=== PATIENT | female | born 1960 | race Caucasian/White ===

== ENCOUNTER 2024-05-16 12:11 | Observation (INO) | payer BC ==
[~2024-05-16] VITALS: Ht 152.4 cm; Wt 86.2 kg
[2024-05-16] MEDS ORDERED: Vancomycin IV 1.5 GM in SODIUM CHLORIDE 0.9% 500ML 500 ML IV ONE (12:45)
[2024-05-16] MEDS ORDERED: IOPAMIDOL 370 MG/ML 100 ML INFUS..BTL INJ ONE (12:56)
[2024-05-16] MEDS: SODIUM CHLORIDE 0.9% 1000ML 1,000 ML IV SCH (13:03)
[2024-05-16] MEDS: Vancomycin IV 1 GM in SODIUM CHLORIDE 0.9% 250ML 250 ML IV SCH (13:04)
[2024-05-16] MEDS: BENZOCAINE 20% SPR 60 ML CAN MT ONE (13:04)
[2024-05-16] MEDS: TRAMADOL HCL 50 MG TAB PO ONE (14:33)
[2024-05-16] MEDS ORDERED: SODIUM CHLORIDE FLUSH 10 ML SYR INJ PRN (16:00)
[2024-05-16] MEDS: Clindamycin INJ 300 MG/50 ML 50 ML IV SCH (18:45)
[2024-05-16 18:47] VITALS: TEMP 98.6
[2024-05-16] MEDS ORDERED: BISACODYL 10 MG SUPP PR PRN (22:00)
[2024-05-16] MEDS ORDERED: ACETAMINOPHEN 325 MG TAB PO PRN (22:00)
[2024-05-16 23:15] VITALS: PULSE 91; RESP 16
[2024-05-16 23:47] VITALS: BP 117/69; PULSE 87; RESP 16; TEMP 98.1; O2SAT 95
[2024-05-17] VITALS (11 sets, daily range): BP systolic 91–139; BP diastolic 61–85; PULSE 84–95; RESP 11–30; TEMP 97.8–99.1; O2SAT 92–99
[2024-05-17] MEDS: TRAMADOL HCL 50 MG TAB PO PRN (02:14)
[2024-05-17 07:24] LABS: BASOPHILS # (AUTO) 0.1 (0.0-0.1); BASOPHILS % 0.6 % (0.0-1.0); EOSINOPHILS # (AUTO) 0.4 (0.0-0.4); EOSINOPHILS % 3.1 % (0.0-6.0); HEMATOCRIT 35.9 % (34.2-44.1); HEMOGLOBIN 11.5 g/dL (12.0-16.0); LYMPHOCYTES # (AUTO) 1.9 (1.0-3.2); LYMPHOCYTES % 17.2 % (18.0-39.1); MEAN CORPUSCULAR HEMOGLOBIN 31.6 pg (28-32); MEAN CORPUSCULAR VOLUME 98.6 fL (81-99); MONOCYTES % 8.5 % (4.4-11.3); NEUTROPHILS # (AUTO) 7.9 (2.1-6.9); NEUTROPHILS % 70.3 % (38.7-80.0); PLATELET COUNT 254 x10e3/uL (140-360); RED BLOOD COUNT 3.64 x10e6/uL (3.6-5.1); RED CELL DISTRIBUTION WIDTH 12.5 % (11.7-14.4); WHITE BLOOD COUNT 11.23 x10e3/uL (4.8-10.8)
[2024-05-17 07:51] LABS: ANION GAP 12.8 mmol/L (8-16); CALCIUM 8.8 mg/dL (8.4-10.2); CREATININE, SERUM 0.83 mg/dL (0.57-1.11); POTASSIUM 3.8 mmol/L (3.5-5.1)
[2024-05-17] MEDS: DOCUSATE SODIUM 100 MG CAP PO SCH (09:00)
[2024-05-17] MEDS: SENNOSIDES 8.6 MG TAB PO SCH (09:00)
[2024-05-17] MEDS: Clindamycin INJ 300 MG/50 ML 50 ML IV SCH (14:07)
[2024-05-17] MEDS ORDERED: IBUPROFEN800 MG PO (15:35)
[2024-05-17] MEDS ORDERED: CLINDAMYCIN HC300 MG PO (15:35)
== END 2024-05-17 15:54 | disposition home or self-care (01) ==
LOC: FSED 12:16 → ERHOLD 15:56 → ICU 23:26
PROVIDERS: ADMIT Internal Medicine; ATTEND Internal Medicine
DX: K04.7 Periapical abscess without sinus (principal); L03.211 Cellulitis of face; K02.9 Dental caries, unspecified; B95.4 Other streptococcus as the cause of diseases classified elsewhere; I10 Essential (primary) hypertension; E78.2 Mixed hyperlipidemia; E11.9 Type 2 diabetes mellitus without complications; I48.20 Chronic atrial fibrillation, unspecified; Z95.0 Presence of cardiac pacemaker; F41.1 Generalized anxiety disorder
CPT/HCPCS: 36415; 41800; 70487; 80048; 80053; 83036; 83605; 85025 ×2; 87040; 87070; 87205; 99252; 99284; G0378 ×2; J3370 ×2; J7030 ×2; J7040; J7050 ×2; Q9967

== ENCOUNTER 2025-04-29 12:18 | Inpatient (IN) | payer BC ==
[~2025-04-29] VITALS: Ht 160 cm; Wt 86.2 kg
[~2025-04-29 12:18] MED LIST: CLINDAMYCIN HC300 MG PO; IBUPROFEN800 MG PO
[2025-04-29] MEDS ORDERED: ONDANSETRON HCL INJ 2MG/ML 2ML 2 MG/ML VIAL IV STA (12:30)
[2025-04-29] MEDS ORDERED: Morphine 2mg Syringe 2 MG/ML SYR IV ONE (12:30)
[2025-04-29] MEDS ORDERED: PROMETHAZINE 12.5MG/ NACL 0.9% 50 ML ONE (13:26)
[2025-04-29] MEDS: PROMETHAZINE 12.5MG/ NACL 0.9% 12.5 MG/50 ML BAG IV ONE (13:33)
[2025-04-29] MEDS: SODIUM CHLORIDE 0.9% 1000ML 1,000 ML IV ONE ×2 (13:33→15:54)
[2025-04-29 13:40] LABS: BASOPHILS % 0.3 % (0.0-1.0); EOSINOPHILS % 0.0 % (0.0-6.0); LYMPHOCYTES % 5.7 % (18.0-39.1); MONOCYTES % 2.1 % (4.4-11.3); NEUTROPHILS % 91.5 % (38.7-80.0); RED CELL DISTRIBUTION WIDTH 12.3 % (11.7-14.4)
[2025-04-29 14:42] LABS: LYMPHOCYTES % (MANUAL) 12 % (19-48); MONOCYTES % (MANUAL) 1 % (3.4-9.0); NEUTROPHILS % (MANUAL) 87 % (40-74); PLATELET ESTIMATE ADEQUATE; PLATELET MORPHOLOGY COMMENT NORMAL
[2025-04-29 15:48] LABS: EST GLOMERULAR FILTRATION RATE 38.0 ML/MIN (>=60)
[2025-04-29] MEDS: METRONIDAZOLE 500MG/NS 100ML 100 ML IV ONE (15:54)
[2025-04-29] MEDS: CIPROFLOXACIN 400 MG/D5W 200ML 200 ML IV SCH (15:54)
[2025-04-29 16:01] LABS: B-TYPE NATRIURETIC PEPTIDE2 242.8 pg/mL (0-100)
[2025-04-29 16:12] LABS: EPITHELIAL CELLS,URINE FEW /LPF; LEUKOCYTE ESTERASE ,URINE NEGATIVE (NEGATIVE); PROTEIN,URINE DIPSTICK TRACE (NEGATIVE); URINE UROBILINOGEN 0.2 mg/dL (0.2 - 1); WBC,URINE (MAN) 0-5 /HPF (0-5)
[2025-04-29] MEDS: METOCLOPRAMIDE HCL 10 MG/2ML VIAL IV ONE (16:19)
[2025-04-29] MEDS: MAGNESIUM SULFATE 2GM/50ML 50 ML IV ONE (16:26)
[2025-04-29] MEDS: POTASSIUM CHLORIDE 20MEQ/100ML 100 ML IV SCH (16:28)
[2025-04-29] MEDS ORDERED: IOPAMIDOL 370 MG/ML 100 ML INFUS..BTL INJ ONE (16:55)
[2025-04-29 17:30] VITALS: TEMP 98.7
[2025-04-29] MEDS ORDERED: SODIUM CHLORIDE 0.9% 1000ML 1,000 ML IV SCH (19:00)
[2025-04-29] MEDS ORDERED: DIAZEPAM10 MG PO (21:31)
[2025-04-29] MEDS ORDERED: DEXTROSE 50% SYRINGE 50 ML IV PRN (21:45)
[2025-04-29 23:28] VITALS: PULSE 84; RESP 16
[2025-04-30] VITALS (29 sets, daily range): BP systolic 100–190; BP diastolic 59–124; PULSE 74–121; RESP 13–37; TEMP 97.9–98.7; O2SAT 96–100
[2025-04-30] MEDS: DIAZEPAM 5 MG TAB PO PRN (00:26)
[2025-04-30] MEDS: MELATONIN 5 MG TABLET PO PRN (02:41)
[2025-04-30 05:06] LABS: BASOPHILS % 0.2 % (0.0-1.0); EOSINOPHILS % 0.1 % (0.0-6.0); LYMPHOCYTES % 18.6 % (18.0-39.1); MONOCYTES % 11.3 % (4.4-11.3); NEUTROPHILS % 69.4 % (38.7-80.0); RED CELL DISTRIBUTION WIDTH 12.6 % (11.7-14.4)
[2025-04-30] MEDS: METOCLOPRAMIDE HCL 10 MG/2ML VIAL IV SCH (05:32)
[2025-04-30 05:35] LABS: EST GLOMERULAR FILTRATION RATE 51.0 ML/MIN (>=60)
[2025-04-30] MEDS: PROMETHAZINE 12.5MG/ NACL 0.9% 12.5 MG/50 ML BAG IV ONE (06:17)
[2025-04-30] MEDS ORDERED: TIZANIDINE HCL4 MG PO (07:02)
[2025-04-30] MEDS ORDERED: WEGOVY2.4 MG/0.7 (07:02)
[2025-04-30] MEDS ORDERED: RIZATRIPTAN10 MG PO (07:02)
[2025-04-30] MEDS ORDERED: GABAPENTIN800 MG PO (07:02)
[2025-04-30] MEDS ORDERED: ESZOPICLONE3 MG PO (07:02)
[2025-04-30] MEDS ORDERED: ELIQUIS5 MG PO (07:02)
[2025-04-30] MEDS ORDERED: MELOXICAM15 MG PO (07:02)
[2025-04-30] MEDS ORDERED: ZIPRASIDONE HCL80 MG PO (07:02)
[2025-04-30] MEDS ORDERED: ENTRESTO 49 MG1 EACH PO (07:02)
[2025-04-30] MEDS ORDERED: DULOXETINE HCL60 MG PO (07:02)
[2025-04-30] MEDS: INSULIN LISPRO 100 UNIT/1 ML 3ML VIAL SQ SCH (07:30)
[2025-04-30] MEDS: ZIPRASIDONE 20 MG CAP PO SCH (09:00)
[2025-04-30] MEDS: DULOXETINE HCL 30 MG DELAYED RELEASE PO SCH (09:00)
[2025-04-30] MEDS: ONDANSETRON HCL INJ 2MG/ML 2ML 2 MG/ML VIAL IV PRN (09:26)
[2025-04-30] MEDS: ENOXAPARIN INJ 80 MG/0.8 ML SYR SC SCH (09:26)
[2025-04-30] MEDS: POTASSIUM CHLORIDE 20MEQ/100ML 100 ML IV SCH (09:31)
[2025-04-30] MEDS: DEXTROSE 5%/0.45% SOD CHL 1,000 ML IV SCH (10:33)
[2025-04-30] MEDS: SODIUM CHLORIDE 0.9% 500ML 500 ML ONE (10:42)
[2025-04-30] MEDS ORDERED: METOCLOPRAMIDE HCL 10 MG/2ML VIAL IV SCH (14:00)
[2025-04-30 14:53] LABS: EST GLOMERULAR FILTRATION RATE 55.0 ML/MIN (>=60)
[2025-04-30 16:26] LABS: AMPHETAMINES SCREEN,URINE POSITIVE (NEGATIVE); COCAINE SCREEN,URINE NEGATIVE (NEGATIVE); OPIATES SCREEN,URINE NEGATIVE (NEGATIVE)
[2025-04-30 16:27] LABS: CANNABINOIDS SCREEN,URINE POSITIVE (NEGATIVE); METHADONE SCREEN, URINE NEGATIVE (NEGATIVE)
[2025-05-01] VITALS (39 sets, daily range): BP systolic 96–185; BP diastolic 13–143; PULSE 80–145; RESP 10–33; TEMP 98.2–98.4; O2SAT 94–100
[2025-05-01] MEDS ORDERED: DIAZEPAM INJ 5 MG/ML 2 ML IV ONE (00:30)
[2025-05-01] MEDS: MAGNESIUM SULFATE 2GM/50ML 50 ML IV ONE (00:42)
[2025-05-01] MEDS: HYDRALAZINE HCL 20 MG/ML VIAL IV PRN (01:17)
[2025-05-01] MEDS ORDERED: DIGOXIN INJ 0.25 MG/ML 2 ML AMP ONE (02:04)
[2025-05-01] MEDS ORDERED: METOPROLOL TARTRATE INJ 1 MG/ML VIAL ONE (02:04)
[2025-05-01] MEDS ORDERED: DILTIAZEM HCL VIAL 5 ML ONE (02:05)
[2025-05-01] MEDS ORDERED: FENTANYL CITRATE/PF 100MCG/2 ML INJ ONE (02:07)
[2025-05-01 06:36] LABS: BASOPHILS % 0.4 % (0.0-1.0); EOSINOPHILS % 0.1 % (0.0-6.0); LYMPHOCYTES % 23.8 % (18.0-39.1); MONOCYTES % 10.9 % (4.4-11.3); NEUTROPHILS % 64.1 % (38.7-80.0); RED CELL DISTRIBUTION WIDTH 12.4 % (11.7-14.4)
[2025-05-01 07:02] LABS: EST GLOMERULAR FILTRATION RATE 53.0 ML/MIN (>=60)
[2025-05-01] MEDS: POTASSIUM CHLORIDE 20 MEQ TAB CR PO ONE (07:54)
[2025-05-01] MEDS: METOPROLOL TARTRATE 25 MG TAB PO SCH (07:55)
[2025-05-01] MEDS: DIAZEPAM INJ 5 MG/ML 2 ML IV ONE ×2 (08:01→11:11)
[2025-05-01 08:56] LABS: CORONAVIRUS COVID-19 AG NEGATIVE (NEGATIVE); INFLUENZA A NAA NEGATIVE (NEGATIVE); INFLUENZA B NAA NEGATIVE (NEGATIVE)
[2025-05-01] MEDS ORDERED: ZIPRASIDONE 20 MG CAP PO SCH (09:00)
[2025-05-01] MEDS ORDERED: DULOXETINE HCL 30 MG DELAYED RELEASE PO SCH (09:00)
[2025-05-01] MEDS: FUROSEMIDE INJ 10 MG/ML 4 ML VIAL IV ONE (09:56)
[2025-05-01] MEDS: LORAZEPAM INJ 2 MG/ML VIAL IV PRN (09:56)
[2025-05-01] MEDS: SACUBITRIL49MG/VALSARTAN51MG 1 EACH TABLET PO SCH (09:57)
[2025-05-01 11:43] LABS: ABG PCO2 17 mmHg (35-45); ABG PH 7.56 (7.35-7.45)
[2025-05-01 11:44] LABS: ABG BASE EXCESS -8.0 mmol/L (-2 - 3); ABG HCO3 15 mmol/L (22-26); ABG OXYGEN SATURATION 100.0 % (95-98); ABG PO2 160 mmHg (80-105); ABG TCO2 15
[2025-05-01] MEDS: ONDANSETRON HCL INJ 2MG/ML 2ML 2 MG/ML VIAL IV SCH (11:49)
[2025-05-01] MEDS: DILTIAZEM HCL 5 MG/ML 5 ML VIAL IV STA (16:24)
[2025-05-01] MEDS: DIGOXIN INJ 0.25 MG/ML 2 ML AMP IV STA (16:25)
[2025-05-01] MEDS: FENTANYL CITRATE/PF 100MCG/2 ML INJ IV ONE (16:26)
[2025-05-01] MEDS: METOPROLOL TARTRATE INJ 1 MG/ML VIAL IV STA (16:26)
[2025-05-02] VITALS (18 sets, daily range): BP systolic 121–164; BP diastolic 90–102; PULSE 73–112; RESP 17–32; TEMP 97.3–98.6; O2SAT 91–99
[2025-05-02 05:36] LABS: BASOPHILS % 0.3 % (0.0-1.0); EOSINOPHILS % 0.1 % (0.0-6.0); LYMPHOCYTES % 12.3 % (18.0-39.1); MONOCYTES % 9.4 % (4.4-11.3); NEUTROPHILS % 77.3 % (38.7-80.0); RED CELL DISTRIBUTION WIDTH 13.0 % (11.7-14.4)
[2025-05-02 05:54] LABS: EST GLOMERULAR FILTRATION RATE 50.0 ML/MIN (>=60)
[2025-05-02 08:15] LABS: ABG HCO3 21 mmol/L (22-26); ABG PCO2 33 mmHg (35-45); ABG PH 7.42 (7.35-7.45); ABG PO2 83 mmHg (80-105); ABG TCO2 22
[2025-05-02 08:16] LABS: ABG BASE EXCESS -3.0 mmol/L (-2 - 3); ABG OXYGEN SATURATION 96.0 % (95-98)
[2025-05-02] MEDS: MAGNESIUM SULFATE 2GM/50ML 50 ML IV ONE (09:09)
[2025-05-02] MEDS: FUROSEMIDE INJ 10 MG/ML 4 ML VIAL IV ONE (09:37)
[2025-05-02] MEDS ORDERED: LORAZEPAM INJ 2 MG/ML VIAL IV PRN (14:30)
[2025-05-02] MEDS: METRONIDAZOLE 500MG/NS 100ML 100 ML IV SCH (15:25)
[2025-05-02] MEDS: AMIODARONE HCL 200 MG TAB PO SCH (17:10)
[2025-05-02] MEDS: Morphine 4mg INJECTION 4 MG/ML INJ IV PRN (18:24)
[2025-05-03] VITALS (56 sets, daily range): BP systolic 80–137; BP diastolic 62–92; PULSE 71–93; RESP 10–28; TEMP 97–98.3; O2SAT 93–100
[2025-05-03] MEDS: METOCLOPRAMIDE HCL 10 MG/2ML VIAL IV SCH (05:22)
[2025-05-03 06:51] LABS: BASOPHILS % 0.3 % (0.0-1.0); EOSINOPHILS % 0.1 % (0.0-6.0); LYMPHOCYTES % 11.5 % (18.0-39.1); MONOCYTES % 6.5 % (4.4-11.3); NEUTROPHILS % 81.0 % (38.7-80.0); RED CELL DISTRIBUTION WIDTH 12.9 % (11.7-14.4)
[2025-05-03 07:15] LABS: EST GLOMERULAR FILTRATION RATE 49.0 ML/MIN (>=60)
[2025-05-03] MEDS: ONDANSETRON HCL INJ 2MG/ML 2ML 2 MG/ML VIAL IV PRN (09:44)
[2025-05-04] VITALS (26 sets, daily range): BP systolic 72–120; BP diastolic 55–78; PULSE 69–87; RESP 14–28; TEMP 97.9–98.7; O2SAT 94–100
[2025-05-04 09:48] LABS: BASOPHILS % 0.2 % (0.0-1.0); EOSINOPHILS % 0.1 % (0.0-6.0); LYMPHOCYTES % 12.8 % (18.0-39.1); MONOCYTES % 8.6 % (4.4-11.3); NEUTROPHILS % 77.4 % (38.7-80.0); RED CELL DISTRIBUTION WIDTH 12.9 % (11.7-14.4)
[2025-05-04 09:52] LABS: EST GLOMERULAR FILTRATION RATE 39.0 ML/MIN (>=60)
[2025-05-04] MEDS ORDERED: SEROQUEL50 MG PO (10:17)
[2025-05-04] MEDS ORDERED: ONDANSETRON ODT4 MG PO (10:22)
[2025-05-04] MEDS ORDERED: PANTOPRAZOLE SO40 MG PO (10:22)
[2025-05-08 06:53] LABS: ABG BASE EXCESS -8.0 mmol/L (-2 - 3); ABG HCO3 15 mmol/L (22-26); ABG OXYGEN SATURATION 100.0 % (95-98); ABG PCO2 17 mmHg (35-45); ABG PH 7.56 (7.35-7.45); ABG PO2 160 mmHg (80-105); ABG TCO2 15
[2025-05-08 06:54] LABS: ABG BASE EXCESS -3.0 mmol/L (-2 - 3); ABG HCO3 21 mmol/L (22-26); ABG OXYGEN SATURATION 96.0 % (95-98); ABG PCO2 33 mmHg (35-45); ABG PH 7.42 (7.35-7.45); ABG PO2 83 mmHg (80-105); ABG TCO2 22
== END 2025-05-04 14:05 | disposition home or self-care (01) | DRG 896 ==
LOC: ER 12:28 → ERHOLD 19:01 → ICU 04-30 01:16 → IMCU 05-03 11:37 → ICU 05-03 16:56
PROVIDERS: ADMIT Family Medicine Adult Medicine; ATTEND Family Medicine Adult Medicine
PROC: 4A133R1 Monitoring of Arterial Saturation, Peripheral, Percutaneous Approach (ICD-10-PCS; principal; 2025-05-01)
PROC: 5A2204Z Restoration of Cardiac Rhythm, Single (ICD-10-PCS; 2025-05-01)
DX: F15.13 Other stimulant abuse with withdrawal (principal); I21.A1 Myocardial infarction type 2; I50.23 Acute on chronic systolic (congestive) heart failure; E87.4 Mixed disorder of acid-base balance; I47.29 Other ventricular tachycardia; I48.92 Unspecified atrial flutter; N17.9 Acute kidney failure, unspecified; R65.10 Systemic inflammatory response syndrome (SIRS) of non-infectious origin without acute organ dysfunction; I11.0 Hypertensive heart disease with heart failure; G90.81 Serotonin syndrome; K83.8 Other specified diseases of biliary tract; F31.9 Bipolar disorder, unspecified; I48.0 Paroxysmal atrial fibrillation; T43.621A Poisoning by amphetamines, accidental (unintentional), initial encounter; Z11.52 Encounter for screening for COVID-19; I25.5 Ischemic cardiomyopathy; D75.838 Other thrombocytosis; E87.6 Hypokalemia; E83.42 Hypomagnesemia; K29.70 Gastritis, unspecified, without bleeding; F41.9 Anxiety disorder, unspecified; R74.8 Abnormal levels of other serum enzymes; R11.2 Nausea with vomiting, unspecified; F40.240 Claustrophobia; E66.9 Obesity, unspecified; Z68.33 Body mass index [BMI] 33.0-33.9, adult; F12.10 Cannabis abuse, uncomplicated; Z79.01 Long term (current) use of anticoagulants; Z79.85 Long-term (current) use of injectable non-insulin antidiabetic drugs; Z95.810 Presence of automatic (implantable) cardiac defibrillator; Z90.49 Acquired absence of other specified parts of digestive tract; Z88.0 Allergy status to penicillin; Z87.891 Personal history of nicotine dependence
CPT/HCPCS: 36415; 36555; 36600; 70450; 71045; 74177; 76705; 80048; 80053; 80307; 81001; 82550; 82805; 82948; 83605; 83690; 83735; 83880; 84443; 84484; 85025; 87040; 87086; 93005; 93306; 99284; J0360; J0696; J1160; J1650; J1938; J2060; J2270; J2405; J2470; J2550; J2765; J3360; J3475; J3480; J7030; J7040; Q9967